=== PATIENT | female | born 1960 | race Caucasian/White ===

== ENCOUNTER 2021-11-13 05:56 | Day surgery (SDC) | payer OTHER ==
[2021-11-13] MEDS ORDERED: Dextrose 5%-Lactated Ringers 1,000 ML IV SCH (06:30)
[2021-11-13] MEDS ORDERED: Ondansetron 4 MG/2 ML SDV ONE (07:21)
[2021-11-13] MEDS ORDERED: Midazolam 1 MG/ML 2 ML SDV ONE (07:21)
[2021-11-13] MEDS ORDERED: Propofol 200 MG/20 ML SDV ONE (07:21)
[2021-11-13] MEDS ORDERED: fentaNYL 100 MCG/2 ML SDV ONE (07:21)
== END 2021-11-13 09:25 | disposition home or self-care (01) ==
LOC: JP.SDS 05:56
PROVIDERS: ATTEND Surgery
DX: Z12.11 Encounter for screening for malignant neoplasm of colon (principal); K64.9 Unspecified hemorrhoids
CPT/HCPCS: 45378; J2250; J2405; J2704; J3010; J7121